=== PATIENT | male | born 1955 | race Caucasian/White ===

== ENCOUNTER 2024-04-03 17:29 | Emergency (ER) | payer MEDICARE, OTHER, SELFPAY ==
[2024-04-03] VITALS (12 sets, daily range): BP systolic 147–161; BP diastolic 83–98; PULSE 61–69; RESP 20; TEMP 37; O2SAT 97–99; BMI 27.9
--- NOTE | 2024-04-03 17:42 | DI.RAD.S_ITS ---
PROCEDURE: XR ELBOW RT MIN 3V INDICATIONS: Right elbow pain after fall TECHNIQUE: 3 views of the elbow were acquired. COMPARISON: None. FINDINGS: Bones: No fractures or dislocations. No suspicious bony lesions. Soft tissues: No elbow joint effusion. No suspicious soft tissue calcifications. IMPRESSION: No acute elbow fracture or significant joint effusion. Dictated by: Duncan Valencia M.D. on 04/03/2024 at 19:41 Approved by: Duncan Valencia M.D. on 04/03/2024 at 19:42
--- NOTE | 2024-04-03 17:42 | DI.RAD.S_ITS ---
PROCEDURE: XR RIBS RT MIN 3V W CXR 1V INDICATIONS: Right lower anterior rib pain after fall TECHNIQUE: 4 views of the ribs were acquired, along with a single view chest. COMPARISON: None. FINDINGS: Surgical changes and devices: None. Bones and chest wall: Slightly displaced fractures involving right posterior lateral 6 through 8th ribs are seen.. No suspicious bony lesions. Overlying soft tissues appear unremarkable. Lungs and pleura: No pleural effusions or pneumothorax. Lungs appear clear. Mediastinum: Mediastinal contours appear normal. Heart size is normal. IMPRESSION: Slightly displaced right posterior lateral 6th through 8th ribs. No focal infiltrate or pneumothorax. Dictated by: Duncan Valencia M.D. on 04/03/2024 at 19:39 Approved by: Duncan Valencia M.D. on 04/03/2024 at 19:40
--- NOTE | 2024-04-03 17:42 | DI.RAD.S_ITS ---
PROCEDURE: XR CALCANEOUS RT MIN 2V INDICATIONS: R heel pain after fall TECHNIQUE: Two views of the calcaneus were acquired. COMPARISON: None. FINDINGS: Bones: No fractures or dislocations. Well-defined plantar and dorsal calcaneal enthesophytes are seen. Of No suspicious bony lesions. Soft tissues: No suspicious calcifications. Achilles tendon appears normal. IMPRESSION: No acute calcaneal fracture or dislocation. Well-defined calcaneal enthesophytes. Dictated by: Duncan Valencia M.D. on 04/03/2024 at 19:41 Approved by: Duncan Valencia M.D. on 04/03/2024 at 19:41
--- NOTE | 2024-04-03 17:43 | DI.CT.S_ITS ---
PROCEDURE: CT CERVICAL SPINE WO CON INDICATIONS: fall off ladder, loss of consciousness TECHNIQUE: Noncontrast 3 mm thick sections acquired from the skull base to the T4 level. Sagittal and coronal reformats were then constructed. For radiation dose reduction, the following was used: automated exposure control, adjustment of mA and/or kV according to patient size. COMPARISON: None. FINDINGS: Image quality: Excellent. Bone: There is no acute fracture or dislocation. The vertebral body heights are preserved. Alignment: There is preservation of the cervical lordosis. Mild multilevel facet arthropathy, most conspicuous at C3-C4. Central canal: Although the spinal cord is not well assessed on CT, there is no severe bony central canal stenosis. Thyroid gland: The thyroid gland is within normal limits. Airway: The visualized trachea is within normal limits. Lymph nodes: There is no cervical or medial supraclavicular lymphadenopathy. Vessels: Mild right common carotid atherosclerosis. Lung apices: The visualized lung apices are clear. Sinuses: Mild mucosal thickening of the maxillary sinuses. The visualized paranasal sinuses are otherwise clear. The mastoid air cells and middle ear cavities are clear. Dentition: The visualized dentition is within normal limits. Other: Bilateral punctate tonsilloliths. IMPRESSION: No displaced fracture or traumatic subluxation. Dictated by: Duran Zapata M.D. on 04/03/2024 at 18:55 Approved by: Duran Zapata M.D. on 04/03/2024 at 18:59
--- NOTE | 2024-04-03 17:43 | DI.CT.S_ITS ---
PROCEDURE: CT HEAD/BRAIN WO CON INDICATIONS: fall from ladder, loss of consciousness TECHNIQUE: Noncontrast 4.5 mm thick angled axial sections acquired from the foramen magnum to the vertex, with coronal and sagittal reformats. For radiation dose reduction, the following was used: automated exposure control, adjustment of mA and/or kV according to patient size. COMPARISON: None. FINDINGS: Image quality: Diagnostic. CSF spaces: Basal cisterns are patent. No extra-axial fluid collections. Ventricles are normal in size and shape. Brain: No midline shift. No intracranial masses or hemorrhage. Slater-white matter interface is normal. Skull and face: Calvarium and visualized facial bones are intact, without suspicious lesions. Sinuses: Mucosal thickening in the left maxillary sinus. Visualized sinuses and mastoids are otherwise clear. IMPRESSION: No acute intracranial pathology. Dictated by: Duran Zapata M.D. on 04/03/2024 at 18:54 Approved by: Duran Zapata M.D. on 04/03/2024 at 18:55
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
== END 2024-04-03 21:01 | disposition home or self-care (01) ==
PROVIDERS: Emergency Provider Emergency Medicine
DX: M79.671 Pain in right foot (principal); S80.812A Abrasion, left lower leg, initial encounter; S80.811A Abrasion, right lower leg, initial encounter; M25.521 Pain in right elbow; R07.81 Pleurodynia; W11.XXXA Fall on and from ladder, initial encounter
CPT/HCPCS: 70450; 71101; 72125; 73080; 73650; 99284